=== PATIENT | male | born 1960 | race Hispanic/Latino ===

== ENCOUNTER 2017-08-17 16:55 | Emergency (ER) | payer SELFPAY ==
[~2017-08-17 16:55] MED LIST: ASPI-1197 PO; LEVO500T2 PO
[2017-08-17 17:32] LABS: APPEARANCE,URINE Clear (CLEAR); BILIRUBIN,URINE Negative (NEGATIVE); COLOR,URINE Yellow (YELLOW); GLUCOSE, URINE (UA) Negative (NEGATIVE); KETONES,URINE Negative (NEGATIVE); LEUKOCYTE ESTERASE ,URINE Trace (NEGATIVE); NITRATE,URINE Negative (NEGATIVE); OCCULT BLOOD,URINE Moderate (NEGATIVE); PROTEIN,URINE POS 2+ (NEGATIVE); UROBILINOGEN,URINE 0.2 mg/dL (0.2-1.0)
[2017-08-17 17:39] LABS: BASOPHILS % (AUTO) 0.7 % (0.0-5.0); EOSINOPHILS % (AUTO) 3.3 % (0.0-8.0); HEMATOCRIT 35.7 % (42-54); LYMPHOCYTES % (AUTO) 9.3 % (21.0-51.0); MEAN CORPUSCULAR HEMOGLOBIN 26.7 pg (27.0-33.0); MEAN CORPUSCULAR VOLUME 78.6 fL (79-99); MONOCYTES % (AUTO) 6.3 % (3.0-13.0); NEUTROPHILS % (AUTO) 80.4 % (40.0-77.0); PLATELET COUNT (AUTO) 477 K/uL (130-400); RED BLOOD CELL COUNT(AUTO) 4.53 MIL/uL (4.50-6.20); RED CELL DISTRIBUTION WIDTH 15.6 % (11.0-15.5); WHITE BLOOD COUNT (AUTO) 9.1 K/uL (4.8-10.8)
[2017-08-17 17:42] LABS: BACTERIA,URINE Rare /HPF (None Seen); WBC,URINE 0-1 /HPF (0-1)
[2017-08-17 17:52] LABS: CARBON DIOXIDE 25 mmol/L (21-32); CHLORIDE 100 mmol/L (101-111); CREATININE 3.7 mg/dL (0.5-1.5); GLOMERULAR FILTR. RATE CALC 18 mL/min (>60); GLUCOSE,RANDOM 122 mg/dL (70-105); POTASSIUM 3.8 mmol/L (3.5-5.1); SODIUM SERUM 138 mmol/L (136-145); UREA NITROGEN, BLOOD 35 mg/dL (7-18)
[2017-08-17 17:53] LABS: INR 0.95 (0.85-1.15); PARTIAL THROMBOPLASTIN TIME 31.4 SEC (26.3-35.5)
[2017-08-17 17:53] LABS: RAPID GROUP A STREP NEGATIVE (NEGATIVE)
[2017-08-17 18:19] LABS: ALANINE AMINOTRANSFERASE 14 U/L (12-78); ALBUMIN 3.3 g/dL (3.5-5.0); ASPARTATE AMINOTRANSFERASE 17 U/L (10-37); BILIRUBIN,TOTAL 0.3 mg/dL (0.2-1.0); CREATINE KINASE MB < 0.5 ng/mL (0.5-3.6); CREATINE KINASE, TOTAL 64 U/L (21-232)
[2017-08-17] MEDS ORDERED: CLONIDINE HCL 0.1 MG TABLET ONE (19:55)
== END 2017-08-17 21:11 | disposition home or self-care (01) ==
LOC: EDH 16:55
DX: J01.90 Acute sinusitis, unspecified (principal); I10 Essential (primary) hypertension; Z87.891 Personal history of nicotine dependence
CPT/HCPCS: 36415; 70450; 71045; 80053; 81001; 82550; 82553; 84484; 85025; 85610; 85730; 87804; 87880; 93005

== ENCOUNTER 2018-08-31 17:17 | Inpatient (IN) | payer OTHER ==
[~2018-08-31] VITALS: Ht 157.5 cm; Wt 54.8 kg
[2018-08-31 17:53] LABS: BASOPHILS % (AUTO) 0.4 % (0.0-5.0); EOSINOPHILS % (AUTO) 1.5 % (0.0-8.0); HEMATOCRIT 29.8 % (42-54); MEAN CORPUSCULAR HEMOGLOBIN 27.6 pg (27.0-33.0); MEAN CORPUSCULAR VOLUME 83.5 fL (79-99); MONOCYTES % (AUTO) 6.6 % (3.0-13.0); NEUTROPHILS % (AUTO) 86.5 % (40.0-77.0); NUCLEATED RED BLOOD CELLS 0.1 % (0.0-0.19); PLATELET COUNT (AUTO) 539 K/uL (130-400); RED BLOOD CELL COUNT(AUTO) 3.57 MIL/uL (4.50-6.20); RED CELL DISTRIBUTION WIDTH 13.7 % (11.0-15.5); WHITE BLOOD COUNT (AUTO) 11.9 K/uL (4.8-10.8)
[2018-08-31 18:07] LABS: INR 1.03 (0.85-1.15); PARTIAL THROMBOPLASTIN TIME 35.5 SEC (26.3-35.5); PROTHROMBIN TIME 10.8 SEC (9.6-11.6)
[2018-08-31 18:13] LABS: BILIRUBIN,TOTAL 0.7 mg/dL (0.2-1.0); POTASSIUM 4.8 mmol/L (3.5-5.1)
[2018-08-31] MEDS ORDERED: LABETALOL 20 MG/4 ML DISP.SYRIN IV ONE (21:02)
[2018-08-31] MEDS: SODIUM CHLORIDE 0.9% 1000ML 1,000 ML IV SCH (21:41)
[2018-08-31] MEDS ORDERED: IPRATROPIUM/ALBUTEROL SULFATE 3 ML SOLUTION IH PRN (21:45)
[2018-08-31] MEDS ORDERED: NITROGLYCERIN 0.4 MG SL TAB SL PRN (21:45)
[2018-08-31] MEDS ORDERED: ACETAMINOPHEN 325 MG TAB PO PRN ×2 (21:45)
[2018-08-31] MEDS ORDERED: ONDANSETRON HCL 4 MG/2 ML VIAL IV PRN (21:45)
[2018-08-31 22:15] LABS: HEMOGLOBIN A1C 6.2 % (4.0-6.0)
[2018-08-31 22:22] LABS: MAGNESIUM 1.9 mg/dL (1.80-2.40); PHOSPHORUS 6.1 mg/dL (2.5-4.9); THYROID STIMULATING HORMONE 4.23 uIU/mL (0.36-3.74)
[2018-08-31 22:34] LABS: APPEARANCE,URINE Clear (CLEAR); BILIRUBIN,URINE Negative (NEGATIVE); COLOR,URINE Yellow (YELLOW); GLUCOSE, URINE (UA) Negative (NEGATIVE); KETONES,URINE Negative (NEGATIVE); LEUKOCYTE ESTERASE ,URINE Negative (NEGATIVE); NITRATE,URINE Negative (NEGATIVE); OCCULT BLOOD,URINE Moderate (NEGATIVE); PH,URINE 5.5 (5.0-8.0); PROTEIN,URINE POS 2+ (NEGATIVE); UROBILINOGEN,URINE 0.2 mg/dL (0.2-1.0)
[2018-08-31] MEDS ORDERED: IPRATROPIUM/ALBUTEROL SULFATE 3 ML SOLUTION IH ONE (22:44)
[2018-08-31] MEDS: IPRATROPIUM/ALBUTEROL SULFATE 3 ML SOLUTION IH SCH (22:45)
[2018-08-31 22:55] LABS: BACTERIA,URINE None Seen /HPF (None Seen); RBC,URINE 0-1 /HPF (0-1); WBC,URINE 0-1 /HPF (0-1)
[2018-08-31 22:56] LABS: AMORPHOUS SEDIMENT,UR Rare /LPF (None Seen); COARSE GRANULAR CASTS,URINE 0-2 /LPF (None Seen); SQUAMOUS EPITHELIAL CELL,UR Rare /HPF (0-2)
[2018-08-31 23:34] LABS: % IRON SATURATION 6.8 % (30-44); FERRITIN 1377 ng/mL (30-400); IRON, SERUM 14 mcg/dL (65-175); TOTAL IRON BINDING CAPACITY 204 mcg/dL (250-450)
[2018-08-31] MEDS ORDERED: HYDRALAZINE HCL 20 MG/ML VIAL ONE (23:55)
[2018-09-01] MEDS: IPRATROPIUM/ALBUTEROL SULFATE 3 ML SOLUTION IH SCH ×6 (02:00→23:21)
[2018-09-01 05:48] LABS: HEMATOCRIT 27.1 % (42-54); MEAN CORPUSCULAR HEMOGLOBIN 28.1 pg (27.0-33.0); MEAN CORPUSCULAR HGB CONC 34.2 g/dL (32.0-36.0); MEAN CORPUSCULAR VOLUME 82.3 fL (79-99); PLATELET COUNT (AUTO) 576 K/uL (130-400); RED BLOOD CELL COUNT(AUTO) 3.29 MIL/uL (4.50-6.20); RED CELL DISTRIBUTION WIDTH 13.6 % (11.0-15.5); WHITE BLOOD COUNT (AUTO) 10.7 K/uL (4.8-10.8)
[2018-09-01 06:05] LABS: ALANINE AMINOTRANSFERASE 10 U/L (12-78); ALBUMIN 2.9 g/dL (3.5-5.0); ASPARTATE AMINOTRANSFERASE 15 U/L (10-37); BILIRUBIN,TOTAL 0.6 mg/dL (0.2-1.0); CARBON DIOXIDE 18 mmol/L (21-32); CHLORIDE 100 mmol/L (101-111); CHOLESTEROL 126 mg/dL (<200); CREATINE KINASE, TOTAL 225 U/L (21-232); GLOMERULAR FILTR. RATE CALC 7 mL/min (>60); GLUCOSE,RANDOM 130 mg/dL (70-105); HDL CHOLESTEROL 36 mg/dL (29-71); LDL DIRECT 75 mg/dL (0-99); LIPASE 1315 U/L (114-286); MYOGLOBIN 465 ng/mL (10-92); POTASSIUM 4.8 mmol/L (3.5-5.1); SODIUM SERUM 137 mmol/L (136-145); TOTAL PROTEIN, SERUM 8.7 g/dL (6.0-8.3); TRIGLYCERIDES 95 mg/dL (30-200); TROPONIN I < 0.04 ng/mL (0.00-0.06); UREA NITROGEN, BLOOD 69 mg/dL (7-18)
[2018-09-01 06:10] LABS: CREATININE 8.9 mg/dL (0.5-1.5)
[2018-09-01 06:25] LABS: BAND NEUTROPHILS % (MANUAL) 4 % (0-2); LYMPHOCYTES % (MANUAL) 5 % (22-44); MAN.DIFF COMMENT-IMPRESSION MANUAL DIFFERENTIAL; MONOCYTES % (MANUAL) 3 % (2-9); PLATELET MORPHOLOGY COMMENT SLIGHT INCREASED; SEGMENTED NEUTROPHILS % 88 % (40-70)
[2018-09-01 06:35] VITALS: BP 166/92
[2018-09-01] MEDS: SODIUM CHLORIDE 0.9% 1000ML 1,000 ML IV SCH (06:54)
[2018-09-01 07:00] VITALS: BP 150/82
[2018-09-01] MEDS: FAMOTIDINE 20MG TAB 20 MG TAB PO SCH ×2 (09:50→21:51)
[2018-09-01] MEDS: ENOXAPARIN SODIUM 30 MG/0.3 ML SQ SCH (10:05)
[2018-09-01] MEDS: AMLODIPINE BESYLATE 5 MG TAB PO SCH (10:06)
[2018-09-01 11:00] VITALS: BP 147/76
[2018-09-01 16:00] VITALS: BP 145/86
[2018-09-01 19:00] VITALS: BP 189/89
--- NOTE | 2018-09-01 19:39 | NUR ---
cm note met with patient and states resides athome with daughter fxo, pt statess is independent with adls and ambulation. no dme. states dc plan is back to home setting at time of dc. states no dc needs.pt goes to [facility] [place] for meds and md followups. Addendum: 09/01/18 at 1940 by TERI LUNA CM Amended: Links added.
[2018-09-01] MEDS: BENZOCAINE/MENTH/CETYLPYRD CL 1 EACH LOZENGE MM PRN (21:58)
--- NOTE | 2018-09-01 22:10 | NUR ---
Lab made aware patient is positive for Flu B. Dimitri Ho was informed. Tamiflu ordered BID
[2018-09-01] MEDS: HYDRALAZINE HCL 20 MG/ML VIAL IV PRN (22:16)
[2018-09-01] MEDS ORDERED: AMLO10TA7 PO (22:26)
[2018-09-01 23:00] VITALS: BP 145/82
[2018-09-01] MEDS: OSELTAMIVIR PHOSPHATE 75 MG CAP PO SCH (23:48)
[2018-09-02] VITALS (8 sets, daily range): BP systolic 142–177; BP diastolic 44–89
[2018-09-02] MEDS: IPRATROPIUM/ALBUTEROL SULFATE 3 ML SOLUTION IH SCH ×6 (02:03→21:37)
[2018-09-02] MEDS: SODIUM CHLORIDE 0.9% 1000ML 1,000 ML IV SCH (02:53)
[2018-09-02 03:40] LABS: BASOPHILS % (AUTO) 0.4 % (0.0-5.0); EOSINOPHILS % (AUTO) 1.3 % (0.0-8.0); HEMATOCRIT 25.4 % (42-54); MEAN CORPUSCULAR HEMOGLOBIN 27.2 pg (27.0-33.0); MEAN CORPUSCULAR HGB CONC 32.5 g/dL (32.0-36.0); MEAN CORPUSCULAR VOLUME 83.6 fL (79-99); MONOCYTES % (AUTO) 6.6 % (3.0-13.0); NEUTROPHILS % (AUTO) 84.7 % (40.0-77.0); PLATELET COUNT (AUTO) 496 K/uL (130-400); RED BLOOD CELL COUNT(AUTO) 3.03 MIL/uL (4.50-6.20); RED CELL DISTRIBUTION WIDTH 13.7 % (11.0-15.5); WHITE BLOOD COUNT (AUTO) 11.2 K/uL (4.8-10.8)
[2018-09-02 03:43] LABS: ABG BASE EXCESS -9.4 mmol/L (-2.0-3.0); ABG HCO3 14.7 mmol/L (21.0-28.0); ABG OXYGEN SATURATION 96.2 % (95.0-99.0); ABG PCO2 28 mmHg (35-48)
[2018-09-02 03:53] LABS: PARTIAL THROMBOPLASTIN TIME 35.7 SEC (26.3-35.5); PROTHROMBIN TIME 10.5 SEC (9.6-11.6)
[2018-09-02 03:57] LABS: ALBUMIN 2.5 g/dL (3.5-5.0); BILIRUBIN,DIRECT 0.1 mg/dL (0.0-0.3); BILIRUBIN,TOTAL 0.4 mg/dL (0.2-1.0); MAGNESIUM 1.5 mg/dL (1.80-2.40); PHOSPHORUS 5.8 mg/dL (2.5-4.9); TOTAL PROTEIN, SERUM 7.6 g/dL (6.0-8.3); URIC ACID 7.4 mg/dL (2.6-7.2)
--- NOTE | 2018-09-02 04:00 | NUR ---
Patient has critical BUN and CR. MD Littlejohn aware. Consistent with previous labs
[2018-09-02 04:05] LABS: CREATININE 8.5 mg/dL (0.5-1.5)
--- NOTE | 2018-09-02 06:15 | NUR ---
Order for Paige catheter. Patient refusing
--- NOTE | 2018-09-02 08:30 | NUR ---
AM ASSESSMENT PT LAYING IN BED, HOB ELEVATED 30 DEGREES, RESTING. DROPLET ISOLATION. SPA SPEAKING ONLY. A/O X 3. NO SOB. NO DISTRESS NOTED. DENIES CHEST PAIN OR DISCOMFORT. DENIES PALPITATIONS. TELE: SR 90s-STACH 100-110s. DENIES N/V AND OR DIARRHEA. (+) COUGH. REFUSING HEMODIALYSIS. OOB W/ASSISTANCE. MAY AMBULATE W/OUT ASSISTANCE. INSTRUCTED TO CALL FOR ASSISTANCE. CALL ABHISHEK W/IN REACH.
[2018-09-02] MEDS: AMLODIPINE BESYLATE 5 MG TAB PO SCH (08:59)
[2018-09-02] MEDS: FAMOTIDINE 20MG TAB 20 MG TAB PO SCH (08:59)
[2018-09-02] MEDS: ASPIRIN 81MG TAB.CHEW PO SCH (08:59)
[2018-09-02] MEDS: OSELTAMIVIR PHOSPHATE 75 MG CAP PO SCH (08:59)
[2018-09-02] MEDS: ENOXAPARIN SODIUM 30 MG/0.3 ML SQ SCH (09:00)
[2018-09-02] MEDS: BENZOCAINE/MENTH/CETYLPYRD CL 1 EACH LOZENGE MM PRN (14:16)
--- NOTE | 2018-09-02 16:16 | NUR ---
Nutrition Intervention: Nutrition consult for 12lb wt loss reported in the last month. Pt reports poor po intake because he feels full shortly after eating. Pt eating about 50% of his meals. Recommend 6 small meals for pt with nutrition supplementation TID at meal times. Pt verbalize agreement. Pt with altered nutrition related lab values. Diet to be updated by KRYSTIN. Addendum: 09/02/18 at [address] RD Amended: Links added.
[2018-09-02] MEDS ORDERED: SODIUM BICARBONATE 650 MG TAB PO SCH (17:00)
--- NOTE | 2018-09-02 17:56 | NUR ---
MD VISIT DR KC IN TO SEE PT, AFTER DISCUSSING PT'S STATUS & PLAN FO CARE W/DR [place]. PT'S DAUGHTER @ BEDSIDE. PPLAN OF CARE REVIEWED BY .
[2018-09-02] MEDS: SODIUM BICARBONATE 650 MG TAB PO SCH (22:08)
[2018-09-03 00:47] VITALS: BP 140/86
[2018-09-03] MEDS: IPRATROPIUM/ALBUTEROL SULFATE 3 ML SOLUTION IH SCH ×3 (02:08→10:24)
[2018-09-03 03:00] VITALS: BP 149/81
[2018-09-03 03:52] LABS: BASOPHILS % (AUTO) 0.5 % (0.0-5.0); EOSINOPHILS % (AUTO) 1.2 % (0.0-8.0); HEMATOCRIT 23.7 % (42-54); LYMPHOCYTES % (AUTO) 6.4 % (21.0-51.0); MEAN CORPUSCULAR HEMOGLOBIN 27.5 pg (27.0-33.0); MEAN CORPUSCULAR HGB CONC 32.7 g/dL (32.0-36.0); MEAN CORPUSCULAR VOLUME 84.2 fL (79-99); MONOCYTES % (AUTO) 8.1 % (3.0-13.0); NEUTROPHILS % (AUTO) 83.8 % (40.0-77.0); PLATELET COUNT (AUTO) 496 K/uL (130-400); RED BLOOD CELL COUNT(AUTO) 2.81 MIL/uL (4.50-6.20); RED CELL DISTRIBUTION WIDTH 13.7 % (11.0-15.5)
[2018-09-03 04:10] LABS: POTASSIUM 4.2 mmol/L (3.5-5.1)
[2018-09-03 04:22] LABS: CREATININE 8.6 mg/dL (0.5-1.5)
[2018-09-03 07:27] VITALS: BP 158/86
--- NOTE | 2018-09-03 08:00 | NUR ---
AM ASSESSMENT PT SITTING IN BED, WATCHING TV. DAUGHTER @ BEDSIDE. DROPLET ISOLATION. SPA SPEAKING ONLY. A/O X 3. NO SOB. NO DISTRESS NOTED. DENIES CHEST PAIN OR DISCOMFORT. DENIES PALPITATIONS. TELE: SR 90-STACH 100s. DENIES N/V AND/OR DIARRHEA. ASSISTANCE TO GET OOB, AMBULATE UP AD DOROTHY. PT PENDING TO BE DC HOME TODAY BY . INSTRUCTED TO CALL FOR ASSISTANCE. CALL ABHISHEK W/IN REACH.
[2018-09-03] MEDS: AMLODIPINE BESYLATE 5 MG TAB PO SCH (08:15)
[2018-09-03] MEDS: OSELTAMIVIR PHOSPHATE 75 MG CAP PO SCH (08:16)
[2018-09-03] MEDS: ENOXAPARIN SODIUM 30 MG/0.3 ML SQ SCH (08:16)
[2018-09-03] MEDS: FAMOTIDINE 20MG TAB 20 MG TAB PO SCH (08:16)
[2018-09-03] MEDS: ASPIRIN 81MG TAB.CHEW PO SCH (08:16)
[2018-09-03] MEDS: SODIUM BICARBONATE 650 MG TAB PO SCH (08:18)
[2018-09-03] MEDS: HYDRALAZINE HCL 20 MG/ML VIAL IV PRN (11:22)
[2018-09-03 11:40] VITALS: BP 160/82
[2018-09-03 11:51] VITALS: BP 98/47
--- NOTE | 2018-09-03 12:10 | NUR ---
DISCHARGE VERBAL & WRITTEN DISCHARGE INSTRUCTIONS REVIEWED & GIVEN TO PT & DAUGHTER. QUESTIONS ENCOURAGED & CLARIFIED. PT FLYING OUT TO [facility] TOMORROW, WILL SEEK MEDICAL TX FOR HIS CONDITIONS @ [facility]. PRIMARY MD AWARE OF PT'S PLAN UPON DC. AMA FORM SIGNED EARLIER @ 1117 W/Amy BUI CM. COPY OF MEDICAL RECORDS GIVEN TO PT. TELE JUAN REMOVED EARLIER. IV DISCONTINUED @ THIS TIME. PT & FAMILY TO GATHER PERSONAL BELONGINGS. WILL NOTIFY STAFF WHEN READY TO BE TAKEN TO PRIVATE VEHICLE. CDs FROM RADIOLOGY TO BE GIVEN TO PT & FAMILY BY Amy BUI CM.
--- NOTE | 2018-09-03 12:30 | NUR ---
DISCHARGE PT TAKEN TO PRIVATE VEHICLE VIA WC BY Ayleen PARIKH PCP, ACCOMPANIED BY DAUGHTER. NO DISTRESS NOTED.
--- NOTE | 2018-09-03 16:33 | NUR ---
DC PLAN PATIENT DISCHARGED. NURSE LET MD KNOW ABOUT SENSITIVITIES OF CULTURES. ONLY SUSCEPTIBLE TO IV MEDICATIONS. VERY NEPHROTOXIC. ASKED PHARMACY TO SEE IF THERE WAS PO MEDICATION. SPOKE TO PATIENT EXPLAINED SITUATION. SAID THAT HE HAD ALREADY MADE ARRANGEMENTS FOR FLIGHT TO [facility] TOMORROW AT 5PM AND NEEDED TO LEAVE SO THAT HE CAN MAKE ARRANGEMENTS FOR TOMORROWS FLIGHT. PATIENT SAID HE WOULD SIGN ANY FORM NEEDED TO TAKE RESPONSIBILITY TO LEAVE. LET MD AND CM DIRECTOR KNOW SAID OKAY TO HAVE PATIENT SIGN AMA FORM. FORM SIGNED AND FILED IN CHART. DID GET PERMISSION FROM MD TO GIVE MEDICAL RECORDS TO PATIENT SINCE HE IS [place]ING [place]. MEDICAL RECORDS INCLUDING CD OF RADIOLOGY GIVEN TO PATIENT. SHAYNE FILED. Addendum: 09/03/18 at 1640 by ENEDINA BUI RN CM Amended: Links added.
== END 2018-09-03 12:30 | disposition left against medical advice (07) | DRG 684 ==
LOC: EDH 17:17 → EDHIP 17:18 → 2DH 09-01 06:19
PROVIDERS: ADMIT Hospitalist; ATTEND Hospitalist
DX: N17.9 Acute kidney failure, unspecified (principal); J44.9 Chronic obstructive pulmonary disease, unspecified; N18.4 Chronic kidney disease, stage 4 (severe); N20.0 Calculus of kidney; I12.9 Hypertensive chronic kidney disease with stage 1 through stage 4 chronic kidney disease, or unspecified chronic kidney disease; D50.9 Iron deficiency anemia, unspecified; E03.9 Hypothyroidism, unspecified; E78.5 Hyperlipidemia, unspecified; I73.9 Peripheral vascular disease, unspecified; D47.3 Essential (hemorrhagic) thrombocythemia; J10.1 Influenza due to other identified influenza virus with other respiratory manifestations; K80.20 Calculus of gallbladder without cholecystitis without obstruction; R63.4 Abnormal weight loss; Z68.22 Body mass index [BMI] 22.0-22.9, adult; Z72.0 Tobacco use; Z87.442 Personal history of urinary calculi
CPT/HCPCS: 36415; 36600; 70450; 70551; 71045; 71250; 76770; 80048; 80053; 80061; 80076; 81001; 82378; 82550; 82728; 82803; 83036; 83540; 83550; 83690; 83735; 83874; 83880; 84100; 84153; 84443; 84484; 84550; 85025; 85610; 85730; 86038; 86160; 86255; 86316; 86334; 87040; 87071; 87077; 87186; 87205; 87486; 87581; 87633; 87798; 87804; 93005; 93880; 94640; 94664; G0378; J0360; J1650; J7030